=== PATIENT | female | born 1990 | race Two or more races ===

== ENCOUNTER 2016-06-29 00:27 | Emergency (ER) | payer OTHER ==
[~2016-06-29] VITALS: Ht 154.9 cm; Wt 86.2 kg
[2016-06-29] MEDS ORDERED: Ketorolac 30mg Inj IV ONE (00:45)
--- NOTE | 2016-06-29 00:45 | Emergency Room Report ---
History of Present Illness General Chief Complaint: Flu Like Symptoms Source: Patient Present Illness HPI Is a 25-year-old female with no significant past medical history. She presents with chief complaint of cough body pain, chest pain, chills earache onset this morning. Pain is 10 out of 10. Cough is nonproductive in nature. Nothing made it better. Coughing made it worse. No runny nose no congestion. Has nausea and vomiting. Allergies: Coded Allergies: No Known Allergies (Unverified , 06/29/16) Patient History Past Medical History: none, see triage record, old chart reviewed Past Surgical History: none Pertinent Family History: none Last Menstrual Period: jun Now: No Immunizations: other Reviewed Nursing Documentation: PMH: Agreed, PSxH: Agreed Nursing Documentation-PMH Past Medical History: No Stated History Review of Systems Constitutional: Reports: fever, weakness Eye: Denies: blurred vision, eye pain ENT: Denies: ear pain, nose congestion, throat swelling Respiratory: Reports: cough, shortness of breath Cardiovascular: Reports: chest pain, Denies: palpitations Gastrointestinal: Reports: abdominal pain, nausea, vomiting, Denies: diarrhea Musculoskeletal: Denies: back pain, joint pain Skin: Denies: rash Neurological: Denies: headache, numbness Endocrine: Denies: increased thirst, increased urine Hematologic/Lymphatic: Denies: easy bruising All Other Systems: negative except mentioned in HPI Physical Exam Vital Signs Date Time Temp Pulse Resp B/P Pulse Ox O2 Delivery O2 Flow Rate FiO2 06/29/16 00:31 99.7 124 18 129/74 100 Room Air vitals with fever and tachycardia Sp02 EP Interpretation: reviewed, normal General Appearance: well appearing, no apparent distress, alert, obese Head: normocephalic, atraumatic Eyes: bilateral eye EOMI, bilateral eye PERRL ENT: hearing grossly normal, normal pharynx Neck: full range of motion, supple, no meningismus Respiratory: chest non-tender, lungs clear, normal breath sounds Cardiovascular #1: regular rate, rhythm, no murmur Gastrointestinal: normal bowel sounds, no mass, no organomegaly, no bruit, non- distended, tenderness - mild rlq Musculoskeletal: back normal, gait/station normal, normal range of motion Neurologic: alert, oriented x3 Psychiatric: mood/affect normal Skin: warm/dry Medical Decision Making Diagnostic Impression: Primary Impression: Influenza-like symptoms Additional Impression: Chest pain Qualified Codes: R07.1 - Chest pain on breathing ER Course Patient presents with cough, fever, chest pain, abdominal pain. Lateral malleolus and a WBC. She remained persistently tachycardic. We'll get CT scan to rule out PE. Abdominal examination show tenderness but better now. CT is unremarkable. No evidence of obstruction or acute abdomen. This may be early influenza. No evidence of bacterial infection. If CT scan of chest is negative , we will discharge home. Lab Results Impression labs with elevated wbc Rhythm Strip Diag. Results EP Interpretation: yes Rate: 118 Rhythm: NSR, no PVC's, no ectopy Chest X-Ray Diagnostic Results EP Interpretation: Yes Findings: no consolidation, no effusion, no pneumothorax, no acute cardiopulmonary disease Number of Views: 1 CT/MRI/US Diagnostic Results CT/MRI/US Diagnostic Results : Imaging Test Ordered: CT chest; CT abd /pelvis Impression CT chest: read by radiologist. Neg per radiologist. CT abd/pelvis: read by radiologist as negative. Last Vital Signs Date Time Temp Pulse Resp B/P Pulse Ox O2 Delivery O2 Flow Rate FiO2 06/29/16 00:31 99.7 124 18 129/74 100 Room Air Status: improved Disposition: HOME, SELF-CARE Condition: Stable Patient Instructions: INFLUENZA (Adult) Additional Instructions: Followup your DrCelestina in 2-3 days. Increase fluids. Return for increasing pain, fever, chills, or any concern. MARLON STACY M.D. Jun 29, 2016 00:45
[2016-06-29 00:48] LABS: APPEARANCE,URINE CLEAR; KETONES,URINE NEGATIVE (NEGATIVE); LEUKOCYTE ESTERASE ,URINE 1+ (NEGATIVE); NITRITE,URINE NEGATIVE (NEGATIVE); PH,URINE 8 (4.5-8.0); PROTEIN,URINE NEGATIVE (NEGATIVE); UROBILINOGEN,URINE NORMAL MG/DL (0.0-1.0)
[2016-06-29 00:56] LABS: BACTERIA,URINE FEW /HPF; RBC,URINE 0-2 /HPF (0 - 2); SQUAMOUS EPITHELIAL CELL,UR MANY /LPF (NONE/OCC)
[2016-06-29] MEDS: Acetaminophen 500mg (ES) tab ORAL ONE ×2 (01:03→01:35)
[2016-06-29] MEDS ORDERED: Tubing IV Cassette IV ONE (01:04)
[2016-06-29 01:23] LABS: MEAN CORPUSCULAR HEMOGLOBIN 31.2 PG (27.0-31.0); MEAN CORPUSCULAR HGB CONC 34.8 G/DL (32.0-36.0); MEAN CORPUSCULAR VOLUME 90 FL (80-99); PLATELET COUNT 296 K/UL (150-450); RED BLOOD COUNT 4.83 M/UL (4.20-5.40); RED CELL DISTRIBUTION WIDTH 11.9 % (11.6-14.8); WHITE BLOOD COUNT 14.2 K/UL (4.8-10.8)
[2016-06-29 01:40] LABS: ANION GAP 18 (5-15); CALCIUM 8.5 mg/dL (8.6-10.2); CARBON DIOXIDE 22 mEQ/L (20-30); CHLORIDE 98 mEQ/L (98-107); CREATININE 0.7 mg/dL (0.5-0.9); GLOMERULAR FILTRATION RATE > 60 mL/min (>60); HEMOLYSIS 155; POTASSIUM 4.4 mEQ/L (3.4-4.9); SODIUM 138 mEQ/L (135-145)
[2016-06-29 02:25] VITALS: BP 117/68
[2016-06-29 03:59] VITALS: BP 106/53
[2016-06-29 05:07] VITALS: BP 106/53
--- NOTE | 2016-06-29 08:56 | Diagnostic Imaging Report ---
Indication: Chest pain Technique: Continuous helical transaxial imaging of the chest was obtained from the thoracic inlet to the upper abdomen during rapid intravenous contrast administration. Arterial phase of enhancement obtained. Coronal 2-D reformats were also obtained and maximum intensity projection images in multiple planes. Study obtained in a Siemens sensation [address] Total Dose length Product (DLP): [address] Dose Index Volume (CTDIvol): 13, 25, 36 mGy Comparison: None Findings: The pulmonary artery is well opacified and shows no filling defects although the pulmonary artery is not optimally opacified. The lungs are clear. There is no adenopathy, pleural or pericardial effusions are identified. The aortic dissection or aneurysm identified within the chest. Visualized part of the upper abdomen shows cholecystectomy clips Impression: No evidence of pulmonary embolus. Status post cholecystectomy [facility] has communicated the preliminary results to the Emergency Department. Their findings are largely concordant with this report. The CT scanner at [facility] is accredited by the [employer] and the scans are performed using protocols designed to limit radiation exposure to as low as reasonably achievable to attain images of sufficient resolution adequate for diagnostic evaluation.
--- NOTE | 2016-06-29 08:56 | Diagnostic Imaging Report ---
Indication: Abdominal pain Technique: Continuous helical transaxial imaging of the abdomen and pelvis was obtained from the lung bases to the pubic symphysis. No intravenous contrast was administered. Coronal 2-D reformats were also obtained. Total Dose length Product (DLP): [address] Dose Index Volume (CTDIvol): 20 mGy Comparison: none Findings: The lung bases are clear. Cholecystectomy noted. Solid organ evaluation limited on such an exam done without IV contrast material. The appendix is normal. No free fluid, free air or evidence of bowel obstruction. Uterus noted. No hydronephrosis or renal stones identified. Impression: No acute findings. Study is of limited nature. Status post cholecystectomy. [facility] has communicated the preliminary results to the Emergency Department. Their findings are largely concordant with this report. The CT scanner at [facility] is accredited by the [employer] and the scans are performed using protocols designed to limit radiation exposure to as low as reasonably achievable to attain images of sufficient resolution adequate for diagnostic evaluation.
--- NOTE | 2016-06-29 11:34 | Diagnostic Imaging Report ---
Indication: Cough Comparison: None A single view chest radiograph was obtained. Findings: Cardiomediastinal appearance is within normal limits for age. Pulmonary vascularity is appropriate. The diaphragmatic contour is smooth and costophrenic angles are sharp. No pleural effusions are identified. The bones are unremarkable. Impression: No acute findings
== END 2016-06-29 05:08 | disposition home or self-care (01) ==
LOC: EMR 00:47
DX: J11.1 Influenza due to unidentified influenza virus with other respiratory manifestations (principal); R07.9 Chest pain, unspecified; R00.0 Tachycardia, unspecified; Z90.49 Acquired absence of other specified parts of digestive tract
CPT/HCPCS: 36415; 71010; 71275; 74176; 80048; 81001; 81025; 85025; 96361; 96374; 96375; 99284; J1885; J2405; Q9967